=== PATIENT | male | born 1995 | race Asian ===

== ENCOUNTER 2022-05-27 23:48 | Emergency (ER) | payer MEDICAID ==
[~2022-05-27] VITALS: Ht 172.7 cm; Wt 61.4 kg
[2022-05-28] MEDS ORDERED: AMOX TR/POT CLAV 875 MG/125 MG TABLET PO ONE (00:30)
[2022-05-28] MEDS ORDERED: PERTUSS(ACELL),DIPH,TET VAC/PF 0.5 ML SYRINGE IM. ONE (00:30)
[2022-05-28 00:57] VITALS: BP 108/80
== END 2022-05-28 01:39 | disposition home or self-care (01) ==
LOC: EMS 23:50
DX: S62.327A Displaced fracture of shaft of fifth metacarpal bone, left hand, initial encounter for closed fracture (principal); F10.20 Alcohol dependence, uncomplicated; F17.210 Nicotine dependence, cigarettes, uncomplicated; Y04.0XXA Assault by unarmed brawl or fight, initial encounter; Y93.89 Activity, other specified; Y92.89 Other specified places as the place of occurrence of the external cause; Y99.8 Other external cause status
CPT/HCPCS: 90471; 90715; 99283